=== PATIENT | male | born 1960 | race Caucasian/White ===

== ENCOUNTER 2017-10-17 09:54 | Emergency (ER) | payer BC ==
[~2017-10-17] VITALS: Ht 175.3 cm; Wt 75.7 kg
[2017-10-17 09:59] VITALS: Ht 175.3 cm; Wt 75.7 kg
[2017-10-17 10:44] VITALS: BP 151/92
== END 2017-10-17 10:44 | disposition home or self-care (01) ==
LOC: ED 09:54
DX: R05 Cough (principal); J45.909 Unspecified asthma, uncomplicated